=== PATIENT | male | born 1975 | race Caucasian/White ===

== ENCOUNTER 2018-08-03 13:01 | Emergency (ER) | payer OTHER ==
--- NOTE | 2018-08-03 13:59 | RAD REPORT ---
EXAM DESCRIPTION: Lashawn Villalpando (2 Views)08/03/2018 1:53 pm CLINICAL HISTORY: Cough COMPARISON: None FINDINGS: The interstitial pattern within the right lung base appears mildly prominent. Left lung is clear. The heart is normal size IMPRESSION: Interstitial pattern within the right lung appears mildly prominent which may represent a mild pneumonitis/atypical pneumonia
--- NOTE | 2018-08-03 15:15 | EDPHYS ---
Physician Documentation [facility] Name: Tariq aVsquez Age: 42 yrs Sex: Male : 1975 Arrival Date: 08/03/2018 Time: 13:06 Bed 14 Private MD: ED Physician Thuan Brown HPI: 08/03 18:52 This 42 yrs old Male presents to ER via Ambulatory with complaints of Cough, kdr Diarrhea. 18:52 The patient or guardian reports airway noise, cough, that is intermittent, described as kdr moderate, with productive sputum, that is green. Onset: The symptoms/episode began/occurred gradually, 1 week(s) ago. Severity of symptoms: At their worst the symptoms were mild, moderate, just prior to arrival, in the emergency department the symptoms are unchanged. Modifying factors: The symptoms are alleviated by nothing, the symptoms are aggravated by cold weather, exertion. Associated signs and symptoms: Pertinent positives: diarrhea, vomiting, Pertinent negatives: chest pain, ear ache, fever. The patient has not experienced similar symptoms in the past. The patient has experienced similar episodes in the past, multiple times, usually gets a Z-pack and it resolves. The patient has been recently seen by a physician: Was seen at the [facility] and then at urgent care. He was given Levaquin and developed GI s/s after begin on the medications for two days. He stopped the medication and went to urgent care. They noted that his oxygen saturation was in the low 90's and wanted him to come to the ED for further evaluation . Historical: - Allergies: 13:18 Levaquin (diaphroresis); aa5 - Home Meds: 13:18 None [Active]; aa5 - PMHx: 13:18 Hyperlipidemia; aa5 - PSHx: 13:18 Neck fusion; aa5 - Immunization history:: Flu vaccine is not up to date. - Social history:: Smoking status: Patient/guardian denies using tobacco. - Ebola Screening: : No symptoms or risks identified at this time. ROS: 18:52 Constitutional: Negative for fever, chills, and weight loss, Eyes: Negative for injury, kdr pain, redness, and discharge, ENT: Negative for injury, pain, and discharge, Neck: Negative for injury, pain, and swelling, Cardiovascular: Negative for chest pain, palpitations, and edema, Back: Negative for injury and pain, : Negative for injury, bleeding, discharge, and swelling, MS/Extremity: Negative for injury and deformity, Skin: Negative for injury, rash, and discoloration, Neuro: Negative for headache, weakness, numbness, tingling, and seizure activity. Psych: Negative for depression, anxiety, suicide ideation, homicidal ideation, and hallucinations, Allergy/Immunology: Negative for hives, rash, and allergies, Endocrine: Negative for neck swelling, polydipsia, polyuria, polyphagia, and marked weight changes, Hematologic/Lymphatic: Negative for swollen nodes, abnormal bleeding, and unusual bruising. 18:52 Respiratory: Positive for cough, dyspnea on exertion, shortness of breath, wheezing, Negative for hemoptysis, orthopnea, pleurisy. Exam: 18:52 Constitutional: This is a well developed, well nourished patient who is awake, alert, kdr and in no acute distress. Head/Face: Normocephalic, atraumatic. Eyes: Pupils equal round and reactive to light, extra-ocular motions intact. Lids and lashes normal. Conjunctiva and sclera are non-icteric and not injected. Cornea within normal limits. Periorbital areas with no swelling, redness, or edema. Neck: Trachea midline, no thyromegaly or masses palpated, and no cervical lymphadenopathy. Supple, full range of motion without nuchal rigidity, or vertebral point tenderness. No Meningismus. Chest/axilla: Normal chest wall appearance and motion. Nontender with no deformity. No lesions are appreciated. Cardiovascular: Regular rate and rhythm with a normal S1 and S2. No gallops, murmurs, or rubs. Normal PMI, no JVD. No pulse deficits. Abdomen/GI: Soft, non-tender, with normal bowel sounds. No distension or tympany. No guarding or rebound. No evidence of tenderness throughout. Back: No spinal tenderness. No costovertebral tenderness. Full range of motion. Skin: Warm, dry with normal turgor. Normal color with no rashes, no lesions, and no evidence of cellulitis. MS/ Extremity: Pulses equal, no cyanosis. Neurovascular intact. Full, normal range of motion. Neuro: Awake and alert, GCS 15, oriented to person, place, time, and situation. Cranial nerves II-XII grossly intact. Motor strength 5/5 in all extremities. Sensory grossly intact. Cerebellar exam normal. Normal gait. Psych: Awake, alert, with orientation to person, place and time. Behavior, mood, and affect are within normal limits. 18:52 Respiratory: the patient does not display signs of respiratory distress, Respirations: normal, Breath sounds: bronchial sounds, rales in right base. Vital Signs: 13:18 BP 144 / 92; Pulse 95; Resp 18 S; Temp 98.1(O); Pulse Ox 94% on R/A; Weight 111.13 kg aa5 (R); Height 5 ft. 6 in. (167.64 cm) (R); Pain 0/10; 13:49 BP 150 / 107; Pulse 92; Resp 16 S; Pulse Ox 94% on R/A; jl7 15:00 BP 143 / 91; Pulse 90; Resp 18 S; Pulse Ox 94% on R/A; jl7 13:18 Body Mass Index 39.54 (111.13 kg, 167.64 cm) aa5 MDM: 15:14 Patient medically screened. kdr 18:52 Data reviewed: vital signs, nurses notes, lab test result(s), radiologic studies. kdr Counseling: I had a detailed discussion with the patient and/or guardian regarding: the historical points, exam findings, and any diagnostic results supporting the discharge/admit diagnosis, lab results, radiology results, the need for outpatient follow up. 08/03 13:20 Order name: Chest Pa And Lat (2 Views) XRAY; Complete Time: 15:02 aa5 Administered Medications: No medications were administered Disposition: 08/03/18 15:14 Discharged to Home. Impression: Bronchitis, not specified as acute or chronic, Pneumonitis. - Condition is Stable. - Discharge Instructions: Acute Bronchitis, [id number], Upper Respiratory Infection, Adult, [id number]-[id number], How to Use an Inhaler, [id number]. - Prescriptions for Tessalon Perles 100 mg Oral Capsule - take 1 capsule by ORAL route every 8 hours As needed; 15 capsule. Zithromax Z- Breezy 250 mg Oral Tablet - take 1 tablet by ORAL route as directed for 5 days Day 1 - take two (2) tablets one time. Day 2, 3, 4 , 5 take one (1) tablet once daily.; 6 tablet. Albuterol Sulfate 90 mcg/actuation - inhale 1-2 puff by INHALATION route every 4-6 hours; 1 Inhaler. - Medication Reconciliation Form, Thank You Letter, Antibiotic Education form. - Follow up: Private Physician; When: 2 - 3 days; Reason: If symptoms return, Further diagnostic work-up, Recheck today's complaints, Continuance of care, Re-evaluation by your physician. - Problem is new. - Symptoms have improved. Signatures: Dispatcher [employer] EDThuan Cole MD MD kdr Calderon, Audri RN RN aa5 Mukesh Solano RN RN jl7 Corrections: (The following items were deleted from the chart) 15:23 15:14 08/03/2018 15:14 Discharged to Home. Impression: Bronchitis, not specified as jl7 acute or chronic; Pneumonitis. Condition is Stable. Forms are Medication Reconciliation Form, Thank You Letter, Antibiotic Education, Prescription Opioid Use. Follow up: Private Physician; When: 2 - 3 days; Reason: If symptoms return, Further diagnostic work-up, Recheck today's complaints, Continuance of care, Re-evaluation by your physician. Problem is new. Symptoms have improved. kdr
--- NOTE | 2018-08-03 15:15 | ER ---
Nurse's Notes [facility] Name: Tariq Vasquez Age: 42 yrs Sex: Male : 1975 Arrival Date: 08/03/2018 Time: 13:06 Bed 14 Private MD: Diagnosis: Bronchitis, not specified as acute or chronic;Pneumonitis Presentation: 08/03 13:13 Presenting complaint: Patient states: "I was seen by the [facility] and diagnosed with aa5 bronchitis on Tuesday and I was given Levaquin but I had to stop it because I started sweating like crazy and it gave me diarrhea". Pt reports cough x 2 weeks ago. Pt reports being sent here by [facility] and given Solu-Medrol 125 IM and Albuterol x 1 and [facility] reported O2 sat 90-94% RA. Transition of care: patient was not received from another setting of care. Onset of symptoms was July 2018. Risk Assessment: Do you want to hurt yourself or someone else? Patient reports no desire to harm self or others. Initial Sepsis Screen: Does the patient meet any 2 criteria? No. Patient's initial sepsis screen is negative. Does the patient have a suspected source of infection? No. Patient's initial sepsis screen is negative. Care prior to arrival: None. 13:13 Method Of Arrival: Ambulatory aa5 13:13 Acuity: MAZIN 3 aa5 Historical: - Allergies: 13:18 Levaquin (diaphroresis); aa5 - Home Meds: 13:18 None [Active]; aa5 - PMHx: 13:18 Hyperlipidemia; aa5 - PSHx: 13:18 Neck fusion; aa5 - Immunization history:: Flu vaccine is not up to date. - Social history:: Smoking status: Patient/guardian denies using tobacco. - Ebola Screening: : No symptoms or risks identified at this time. Screenin:51 Abuse screen: Denies threats or abuse. Denies injuries from another. Nutritional jl7 screening: No deficits noted. Tuberculosis screening: No symptoms or risk factors identified. 14:00 Fall Risk None identified. jl7 Assessment: 14:00 General: Appears in no apparent distress. comfortable, well developed, Behavior is jl7 calm, cooperative, appropriate for age. Pain: Denies pain. Neuro: Level of Consciousness is awake, alert, obeys commands, Oriented to person, place, time, situation. Cardiovascular: Heart tones S1 S2 present Patient's skin is warm and dry. Respiratory: Airway is patent Respiratory effort is even, unlabored, Respiratory pattern is regular, symmetrical, Breath sounds with rhonchi in right upper lobe, left upper lobe, left posterior upper lobe and right posterior upper lobe Breath sounds with wheezes in mediastinum, right middle lobe, left posterior lower lobe and right posterior middle lobe. GI: Reports diarrhea. : No signs and/or symptoms were reported regarding the genitourinary system. EENT: No signs and/or symptoms were reported regarding the EENT system. Derm: Skin is pink, warm \\T\\ dry. Musculoskeletal: No signs and/or symptoms reported regarding the musculoskeletal system. 15:00 Reassessment: No changes from previously documented assessment. Patient and/or family jl7 updated on plan of care and expected duration. Pain level reassessed. Patient is alert, oriented x 3, equal unlabored respirations, skin warm/dry/pink. Vital Signs: 13:18 BP 144 / 92; Pulse 95; Resp 18 S; Temp 98.1(O); Pulse Ox 94% on R/A; Weight 111.13 kg aa5 (R); Height 5 ft. 6 in. (167.64 cm) (R); Pain 0/10; 13:49 BP 150 / 107; Pulse 92; Resp 16 S; Pulse Ox 94% on R/A; jl7 15:00 BP 143 / 91; Pulse 90; Resp 18 S; Pulse Ox 94% on R/A; jl7 13:18 Body Mass Index 39.54 (111.13 kg, 167.64 cm) aa5 ED Course: 13:06 Patient arrived in ED. mr 13:15 Triage completed. aa5 13:15 Arm band placed on. aa5 13:43 Mukesh Solano, KELLY is Primary Nurse. jl7 13:51 X-ray completed. Patient tolerated procedure well. 1 13:51 Patient has correct armband on for positive identification. Bed in low position. Call jl7 light in reach. Side rails up X 1. Pulse ox on. NIBP on. 13:52 Chest Pa And Lat (2 Views) XRAY In Process Unspecified. EDMS 14:29 Thuan Brown MD is Attending Physician. kdr 15:21 No provider procedures requiring assistance completed. Patient did not have IV access jl7 during this emergency room visit. Administered Medications: No medications were administered Outcome: 15:14 Discharge ordered by . kdr 15:21 Discharged to home ambulatory. jl7 15:21 Condition: stable 15:21 Discharge instructions given to patient, family, Instructed on discharge instructions, follow up and referral plans. medication usage, Demonstrated understanding of instructions, follow-up care, medications, Prescriptions given X 3. 15:23 Patient left the ED. jl7 Signatures: Dispatcher [employer] EDMS Thuan Brown MD MD kdr Rivera, Maria Umm Padron 1 Carmina Hunter, KELLY RN aa5 Mukesh Solano RN RN jl7 Corrections: (The following items were deleted from the chart) 13:16 13:13 Presenting complaint: Patient states: "I was seen by the [facility] and diagnosed with aa5 bronchitis on Tuesday and I was given Levaquin but I had to stop it because I started sweating like crazy and it gave me diarrhea". Pt reports being sent here by [facility] and given Solu-Medrol 125 IM and Albuterol x 1. aa5 13:16 13:13 Presenting complaint: Patient states: "I was seen by the [facility] and diagnosed with aa5 bronchitis on Tuesday and I was given Levaquin but I had to stop it because I started sweating like crazy and it gave me diarrhea". Pt reports cough x 2 weeks ago. Pt reports being sent here by [facility] and given Solu-Medrol 125 IM and Albuterol x 1. aa5 14:16 14:08 General: Appears in no apparent distress. comfortable, well developed, Behavior 7 is calm, cooperative, appropriate for age, 7 14:16 14:08 Pain: Denies pain. jl7 jl7 14:16 14:08 Neuro: Level of Consciousness is awake, alert, obeys commands, Oriented to jl person, place, time, situation, [facility] 14:16 14:08 Cardiovascular: Heart tones S1 S2 present Patient's skin is warm and dry. jl7 jl7 14:16 14:08 Respiratory: Airway is patent Respiratory effort is even, unlabored, Respiratory [facility] pattern is regular, symmetrical, Breath sounds with rhonchi in right upper lobe, left upper lobe, left posterior upper lobe and right posterior upper lobe Breath sounds with wheezes in left posterior lower lobe and right posterior middle lobe jl7
== END 2018-08-03 15:23 | disposition home or self-care (01) ==
LOC: ER 13:01
DX: J40 Bronchitis, not specified as acute or chronic (principal); J18.9 Pneumonia, unspecified organism; E78.5 Hyperlipidemia, unspecified; Z88.1 Allergy status to other antibiotic agents
CPT/HCPCS: 71046; 99283